=== PATIENT | female | born 1960 | race Caucasian/White ===

== ENCOUNTER 2020-07-12 10:42 | Inpatient (IN) ==
[2020-07-12] MEDS ORDERED: Cefepime HCl 2,000 MG in Water for inj. (sterile) 20 ML IVP STA (10:48)
[2020-07-12] MEDS: 0.9 % Sodium Chloride 1,000 ML IVC SCH ×3 (11:22→17:54)
[2020-07-12 11:25] LABS: Hemoglobin 12.9 g/dL (11.5-15.4); Mean Corpuscular Volume 85.2 fL (83.0-100.0); Red Cell Distribution Width 12.3 % (11.5-14.5); Segmented Neutrophils % 7.4 %
[2020-07-12 11:27] LABS: Basophils % 0.9 %; Eosinophils % 0.9 %; Hematocrit 37.5 % (35.3-44.9); Immature Platelets 9.1 % (1.1-6.1); Lymphocytes # 0.7 K/mcL (0.6-4.6); Lymphocytes % 64.2 %; Mean Corpuscular HGB Conc 34.4 g/dL (31.6-35.5); Mean Corpuscular Hemoglobin 29.3 pg (28.0-33.3); Mean Platelet Volume 10.5 fL (9.4-12.4); Monocytes # 0.3 K/mcL (0.0-1.3); Monocytes % 26.6 %; Neutrophils # 0.1 K/mcL (1.6-8.9)
[2020-07-12 11:29] LABS: Bilirubin,Urine Small (Negative); Blood,Urine Negative (Negative); Clarity,Urine Turbid (Clear); Color,Urine Light-Orange (Yellow); Glucose,Urine (UA) Normal (Normal); Granular Casts,Urine Moderate per lpf (None Seen); Hyaline Casts,Urine Moderate per lpf (None Seen); Ketones,Urine 60 mg/dL (Negative); Leukocyte Esterase,Urine Negative (Negative); Mucus,Urine Many per lpf (None-Few); Nitrite,Urine Negative (Negative); Protein,Urine 100 mg/dL (Neg-Trace); RBC,Urine 0-3 per hpf (0-3); Renal Epithelial Cells,Urine Few per hpf (None-Few); Specific Gravity,Urine 1.028 (1.010-1.025); Transitional Epi Cells,Urine Few per hpf (None-Few); Urobilinogen,Urine Normal (Normal)
[2020-07-12 11:42] LABS: BUN/Creatinine Ratio 14 (6-26); Blood Urea Nitrogen 8 mg/dL (6-20); Carbon Dioxide 20 mEq/L (23-29); Chloride 92 mEq/L (98-107); Potassium 3.5 mEq/L (3.5-5.1); Sodium 127 mEq/L (136-145)
[2020-07-12 11:43] LABS: Alanine Aminotransferase 18 Units/L (7-52); Albumin 3.7 g/dL (3.5-5.7); Albumin/Globulin Ratio 1.2 (1.1-2.2); Alkaline Phosphatase 115 Units/L (34-104); Aspartate Amino Transferase 20 Units/L (13-39); Bilirubin,Direct 0.2 mg/dL (0.0-0.2); Bilirubin,Indirect 0.9 mg/dL (0.0-1.0); Bilirubin,Total 1.1 mg/dL (0.3-1.0); Calcium 8.9 mg/dL (8.6-10.3); Globulin 3.1 g/dL (2.4-3.5); Glucose 128 mg/dL (70-105); Lipase 4 Units/L (11-82); Magnesium 1.8 mg/dL (1.6-2.6); Osmolality,Calculated 264 (280-300); Phosphorous 2.8 mg/dL (2.7-4.5); Total Protein 6.8 g/dL (6.4-8.9); eGFR For African Americans > 60 (> 60); eGFR For Non-African Americans > 60 (> 60)
[2020-07-12 11:52] LABS: Platelet Count 73 K/mcL (140-400); White Blood Count 1.1 K/mcL (4.3-11.1)
[2020-07-12 13:43] LABS: Adenovirus Not Detected (Not Detect); Bordetella Pertussis Not Detected (Not Detect); Chlamydophila pneumoniae Not Detected (Not Detect); Coronavirus 229E Not Detected (Not Detect); Coronavirus HKU1 Not Detected (Not Detect); Coronavirus NL63 Not Detected (Not Detect); Coronavirus OC43 Not Detected (Not Detect); Human Metapneumovirus Not Detected (Not Detect); Human Rhinovirus/Enterovirus Not Detected (Not Detect); Influenza A Subtype 2009 H1 Not Detected (Not Detect); Influenza B Not Detected (Not Detect); Mycoplasma pneumoniae Not Detected (Not Detect); Parainfluenza Virus 1 Not Detected (Not Detect); Parainfluenza Virus 2 Not Detected (Not Detect); Parainfluenza Virus 3 Not Detected (Not Detect); Parainfluenza Virus 4 Not Detected (Not Detect); Respiratory Syncytial Virus Not Detected (Not Detect); SARS-CoV-2 Not Detected (Not Detect)
[2020-07-12] MEDS ORDERED: Naloxone 0.4 MG/ML INJ IVP PRN (14:06)
[2020-07-12] MEDS ORDERED: Acetaminophen 325 MG TABLET PO PRN (15:18)
[2020-07-12 16:34] LABS: Adenovirus F 40/41 PCR Not detected (Not detect); Astrovirus PCR Not detected (Not detect); C.difficile Toxin A/B Gene PCR Not detected (Not detect); Campylobacter by PCR Not detected (Not detect); Cryptosporidium by PCR Not detected (Not detect); Cyclospora cayetanensis PCR Not detected (Not detect); E. coli O157 by PCR Not detected (Not detect); Entamoeba histolytica PCR Not detected (Not detect); Enteroaggregative E.coli(EAEC) Not detected (Not detect); Enteropathogenic E.coli(EPEC) Not detected (Not detect); Enterotoxigenic E.coli (ETEC) Not detected (Not detect); Giardia lamblia PCR Not detected (Not detect); Norovirus GI/GII PCR Not detected (Not detect); Plesiomonas shigelloides PCR Not detected (Not detect); Rotavirus A PCR Not detected (Not detect); Salmonella PCR Not detected (Not detect); Sapovirus PCR Not detected (Not detect); Shig/EnteroinvasiveE coli EIEC Not detected (Not detect); Shigalike tox-prod E coli STEC Not detected (Not detect); Vibrio PCR Not detected (Not detect); Vibrio cholerae PCR Not detected (Not detect); Yersinia enterocolitica PCR Not detected (Not detect)
[2020-07-12] MEDS ORDERED: Diphenoxylate/Atropine 1 TAB TABLET PO PRN (17:04)
[2020-07-12] MEDS: *HR* Heparin 5,000 UNIT/ML VIAL SQ SCH (17:54)
[2020-07-12] MEDS: MetroNIDAZOLE 500 MG/100 ML 500 MG/100 ML BAG IVPB SCH (17:55)
[2020-07-12] MEDS: Cefepime HCl 2,000 MG in 0.9 % Sodium Chloride Mini Bag 100 ML IVPB SCH (19:26)
[2020-07-12] MEDS: *HR* HYDROmorphone 2 MG TABLET PO PRN (22:22)
[2020-07-13] MEDS: MetroNIDAZOLE 500 MG/100 ML 500 MG/100 ML BAG IVPB SCH ×4 (00:23→23:54)
[2020-07-13] MEDS: *HR* LORazepam 0.5 MG TABLET PO PRN ×2 (02:05→22:46)
[2020-07-13] MEDS: Cefepime HCl 2,000 MG in 0.9 % Sodium Chloride Mini Bag 100 ML IVPB SCH ×3 (03:18→20:17)
[2020-07-13] MEDS: *HR* Heparin 5,000 UNIT/ML VIAL SQ SCH ×2 (04:49→16:52)
[2020-07-13 06:13] LABS: Basophils % 0.8 %; Eosinophils % 0.8 %; Immature Granulocytes % 0.8 % (0-4); Red Cell Distribution Width 12.7 % (11.5-14.5)
[2020-07-13 06:15] LABS: Hematocrit 26.5 % (35.3-44.9); Hemoglobin 9.1 g/dL (11.5-15.4); Immature Platelets 7.8 % (1.1-6.1); Lymphocytes # 0.8 K/mcL (0.6-4.6); Lymphocytes % 64.8 %; Mean Corpuscular HGB Conc 34.3 g/dL (31.6-35.5); Mean Corpuscular Volume 87.5 fL (83.0-100.0); Mean Platelet Volume 10.7 fL (9.4-12.4); Monocytes # 0.3 K/mcL (0.0-1.3); Monocytes % 20.5 %; Neutrophils # 0.2 K/mcL (1.6-8.9); Nucleated Red Blood Cells 2.5 /100 WBC (0); Red Blood Count 3.03 M/mcL (3.82-4.97); Segmented Neutrophils % 12.3 %; White Blood Count 1.2 K/mcL (4.3-11.1)
[2020-07-13 06:17] LABS: Platelet Count 60 K/mcL (140-400)
[2020-07-13 06:35] LABS: Platelet Estimate Decreased (Normal)
[2020-07-13 07:15] LABS: BUN/Creatinine Ratio 11 (6-26); Blood Urea Nitrogen 4 mg/dL (6-20); Calcium 7.7 mg/dL (8.6-10.3); Carbon Dioxide 17 mEq/L (23-29); Chloride 104 mEq/L (98-107); Glucose 71 mg/dL (70-105); Osmolality,Calculated 273 (280-300); Potassium 2.9 mEq/L (3.5-5.1); Sodium 134 mEq/L (136-145); eGFR For African Americans > 60 (> 60); eGFR For Non-African Americans > 60 (> 60)
[2020-07-13] MEDS: Loratadine 10 MG TABLET PO SCH (08:21)
[2020-07-13] MEDS ORDERED: Potassium Chloride 40 MEQ, Lidocaine 1% 2 ML in 0.9 % Sodium Chloride 500 ML IVPB ONE ×2 (09:16→17:00)
[2020-07-13] MEDS: 0.9 % Sodium Chloride 1,000 ML IVC SCH (10:23)
[2020-07-13] MEDS: Ringers Solution, Lactated 1,000 ML IVC SCH (11:19)
[2020-07-13] MEDS ORDERED: Diphenoxylate/Atropine 1 TAB TABLET PO SCH (12:00)
[2020-07-13 12:45] LABS: Hematocrit 28.1 % (35.3-44.9); Hemoglobin 9.6 g/dL (11.5-15.4)
[2020-07-13] MEDS: Diphenoxylate/Atropine 1 TAB TABLET PO SCH ×3 (12:57→23:56)
[2020-07-13] MEDS: *HR* HYDROmorphone 2 MG TABLET PO PRN (20:19)
[2020-07-13] MEDS ORDERED: 0.9 % Sodium Chloride Mini Bag 100 ML ONE (20:36)
[2020-07-13] MEDS ORDERED: Potassium Chloride Elixir 20 MEQ/15 ML UDC PO ONE (21:00)
[2020-07-14] MEDS: Ringers Solution, Lactated 1,000 ML IVC SCH ×2 (02:15→20:58)
[2020-07-14 03:08] LABS: Eosinophils % 0.4 %; Red Cell Distribution Width 13.2 % (11.5-14.5)
[2020-07-14 03:10] LABS: Basophils % 0.8 %; Hematocrit 25.5 % (35.3-44.9); Hemoglobin 8.7 g/dL (11.5-15.4); Immature Granulocytes % 2.4 % (0-4); Lymphocytes # 1.2 K/mcL (0.6-4.6); Lymphocytes % 46.2 %; Mean Corpuscular HGB Conc 34.1 g/dL (31.6-35.5); Mean Corpuscular Hemoglobin 29.7 pg (28.0-33.3); Monocytes # 0.4 K/mcL (0.0-1.3); Monocytes % 15.8 %; Neutrophils # 0.9 K/mcL (1.6-8.9); Red Blood Count 2.93 M/mcL (3.82-4.97); Segmented Neutrophils % 34.4 %; White Blood Count 2.5 K/mcL (4.3-11.1)
[2020-07-14 03:31] LABS: Platelet Count 82 K/mcL (140-400)
[2020-07-14 03:34] LABS: % Iron Saturation 17 % (15-50); Blood Urea Nitrogen < 2 mg/dL (6-20); Calcium 7.6 mg/dL (8.6-10.3); Carbon Dioxide 23 mEq/L (23-29); Chloride 104 mEq/L (98-107); Glucose 100 mg/dL (70-105); Iron 34 mcg/dL (50-170); Sodium 134 mEq/L (136-145); Thyroid Stimulating Hormone 3.832 mcIU/mL (0.340-5.600); Transferrin 147 mg/dL (203-362); eGFR For African Americans > 60 (> 60); eGFR For Non-African Americans > 60 (> 60)
[2020-07-14 03:54] LABS: Folate > 22.3 ng/mL (3.0-16.0); Vitamin B12 > 1500 pg/mL (250-1100)
[2020-07-14 04:13] LABS: Platelet Estimate Decreased (Normal)
[2020-07-14] MEDS: Cefepime HCl 2,000 MG in 0.9 % Sodium Chloride Mini Bag 100 ML IVPB SCH ×3 (04:45→20:37)
[2020-07-14] MEDS: *HR* Heparin 5,000 UNIT/ML VIAL SQ SCH (04:46)
[2020-07-14] MEDS: Diphenoxylate/Atropine 1 TAB TABLET PO SCH ×4 (04:47→22:45)
[2020-07-14] MEDS ORDERED: Potassium Chloride 40 MEQ, Lidocaine 1% 2 ML in 0.9 % Sodium Chloride 250 ML IVPB ONE (07:29)
[2020-07-14] MEDS ORDERED: Potassium Chloride 40 MEQ, Lidocaine 1% 2 ML in 0.9 % Sodium Chloride 500 ML IVPB ONE (07:45)
[2020-07-14] MEDS: Pantoprazole 40 MG VIAL IVP SCH ×2 (09:25→17:47)
[2020-07-14] MEDS: MetroNIDAZOLE 500 MG/100 ML 500 MG/100 ML BAG IVPB SCH ×3 (09:26→23:39)
[2020-07-14] MEDS: Loratadine 10 MG TABLET PO SCH (09:27)
[2020-07-14] MEDS: *HR* LORazepam 0.5 MG TABLET PO PRN ×2 (11:28→22:44)
[2020-07-14 14:13] LABS: Hematocrit 25.4 % (35.3-44.9); Hemoglobin 8.8 g/dL (11.5-15.4)
[2020-07-15] MEDS: Cefepime HCl 2,000 MG in 0.9 % Sodium Chloride Mini Bag 100 ML IVPB SCH ×3 (04:36→21:15)
[2020-07-15] MEDS: Diphenoxylate/Atropine 1 TAB TABLET PO SCH ×4 (04:37→23:36)
[2020-07-15 05:08] LABS: VBG Ionized Calcium 1.12 mmol/L (1.15-1.35)
[2020-07-15 05:09] LABS: Eosinophils % 0.1 %; Mean Platelet Volume 12.1 fL (9.4-12.4)
[2020-07-15 05:11] LABS: Basophils % 0.4 %; Hematocrit 27.3 % (35.3-44.9); Hemoglobin 9.2 g/dL (11.5-15.4); Immature Granulocytes % 6.1 % (0-4); Immature Platelets 14.2 % (1.1-6.1); Lymphocytes % 28.4 %; Mean Corpuscular HGB Conc 33.7 g/dL (31.6-35.5); Mean Corpuscular Hemoglobin 29.6 pg (28.0-33.3); Mean Corpuscular Volume 87.8 fL (83.0-100.0); Monocytes # 0.8 K/mcL (0.0-1.3); Monocytes % 11.1 %; Neutrophils # 3.7 K/mcL (1.6-8.9); Red Blood Count 3.11 M/mcL (3.82-4.97); Red Cell Distribution Width 13.8 % (11.5-14.5); Segmented Neutrophils % 53.9 %; White Blood Count 6.9 K/mcL (4.3-11.1)
[2020-07-15] MEDS: Pantoprazole 40 MG VIAL IVP SCH ×2 (05:14→18:09)
[2020-07-15 05:15] LABS: Platelet Count 94 K/mcL (140-400)
[2020-07-15 05:29] LABS: Alanine Aminotransferase 10 Units/L (7-52); Albumin 2.7 g/dL (3.5-5.7); Albumin/Globulin Ratio 1.4 (1.1-2.2); Alkaline Phosphatase 75 Units/L (34-104); Aspartate Amino Transferase 16 Units/L (13-39); Bilirubin,Total 0.5 mg/dL (0.3-1.0); Blood Urea Nitrogen < 2 mg/dL (6-20); Carbon Dioxide 27 mEq/L (23-29); Chloride 99 mEq/L (98-107); Globulin 1.9 g/dL (2.4-3.5); Glucose 65 mg/dL (70-105); Magnesium 1.5 mg/dL (1.6-2.6); Potassium 2.9 mEq/L (3.5-5.1); Sodium 135 mEq/L (136-145); Total Protein 4.6 g/dL (6.4-8.9); eGFR For African Americans > 60 (> 60); eGFR For Non-African Americans > 60 (> 60)
[2020-07-15 05:43] LABS: Anisocytosis 1+ (Not Present); Platelet Estimate Slight Decrease (Normal)
[2020-07-15] MEDS: MetroNIDAZOLE 500 MG/100 ML 500 MG/100 ML BAG IVPB SCH (08:08)
[2020-07-15] MEDS: Loratadine 10 MG TABLET PO SCH (08:09)
[2020-07-15] MEDS ORDERED: Calcium Gluconate 1gm/50mL 1 GM/50 ML BAG IVPB ONE (10:16)
[2020-07-15] MEDS ORDERED: *HR* HYDROmorphone 2 MG TABLET PO PRN (10:17)
[2020-07-15] MEDS: *HR* LORazepam 0.5 MG TABLET PO PRN ×2 (11:53→23:35)
[2020-07-15] MEDS: Ondansetron 4 MG/2 ML VIAL IVP PRN ×2 (14:04→23:36)
[2020-07-15] MEDS: metroNIDAZOLE 500 MG TABLET PO SCH ×2 (15:03→21:14)
[2020-07-15] MEDS: dexAMETHasone 4 MG TABLET PO SCH (18:09)
[2020-07-16 01:37] LABS: Hemoglobin 10.2 g/dL (11.5-15.4); Nucleated Red Blood Cells 0.3 /100 WBC (0)
[2020-07-16 01:39] LABS: Hematocrit 30.1 % (35.3-44.9); Immature Platelets 17.6 % (1.1-6.1); Lymphocytes # 2.4 K/mcL (0.6-4.6); Mean Corpuscular HGB Conc 33.9 g/dL (31.6-35.5); Mean Corpuscular Hemoglobin 30.4 pg (28.0-33.3); Mean Corpuscular Volume 89.6 fL (83.0-100.0); Mean Platelet Volume 11.5 fL (9.4-12.4); Red Blood Count 3.36 M/mcL (3.82-4.97); Red Cell Distribution Width 14.2 % (11.5-14.5)
[2020-07-16 01:42] LABS: Platelet Count 98 K/mcL (140-400)
[2020-07-16 02:02] LABS: Alanine Aminotransferase 11 Units/L (7-52); Albumin 2.7 g/dL (3.5-5.7); Albumin/Globulin Ratio 1.2 (1.1-2.2); Alkaline Phosphatase 85 Units/L (34-104); Aspartate Amino Transferase 22 Units/L (13-39); BUN/Creatinine Ratio 5 (6-26); Bilirubin,Total 0.6 mg/dL (0.3-1.0); Blood Urea Nitrogen 2 mg/dL (6-20); Calcium 7.8 mg/dL (8.6-10.3); Carbon Dioxide 28 mEq/L (23-29); Chloride 100 mEq/L (98-107); Globulin 2.2 g/dL (2.4-3.5); Glucose 90 mg/dL (70-105); Magnesium 1.8 mg/dL (1.6-2.6); Osmolality,Calculated 280 (280-300); Sodium 137 mEq/L (136-145); Total Protein 4.9 g/dL (6.4-8.9); eGFR For African Americans > 60 (> 60); eGFR For Non-African Americans > 60 (> 60)
[2020-07-16 02:23] LABS: Band Neutrophils % 19.1 % (0-4); Eosinophils # 0.6 K/mcL (0.0-0.6); Eosinophils % 4.3 %; Metamyelocytes % 2.1 % (0); Monocytes # 0.6 K/mcL (0.0-1.3); Monocytes % 4.3 %; Neutrophils # 10.1 K/mcL (1.6-8.9); Segmented Neutrophils % 53.2 %
[2020-07-16 02:25] LABS: Anisocytosis 1+ (Not Present); Platelet Estimate Slight Decrease (Normal); Toxic Granulation Present (Not Present)
[2020-07-16] MEDS: Cefepime HCl 2,000 MG in 0.9 % Sodium Chloride Mini Bag 100 ML IVPB SCH ×2 (05:04→14:14)
[2020-07-16] MEDS: Diphenoxylate/Atropine 1 TAB TABLET PO SCH ×4 (05:04→23:14)
[2020-07-16] MEDS: Pantoprazole 40 MG VIAL IVP SCH (07:54)
[2020-07-16] MEDS: Loratadine 10 MG TABLET PO SCH (07:55)
[2020-07-16] MEDS: dexAMETHasone 4 MG TABLET PO SCH (07:55)
[2020-07-16] MEDS: metroNIDAZOLE 500 MG TABLET PO SCH ×3 (07:55→19:55)
[2020-07-16] MEDS ORDERED: Potassium Chloride 40 MEQ, Lidocaine 1% 2 ML in D5% in Water 500 ML IVPB ONE (09:20)
[2020-07-16] MEDS: *HR* LORazepam 0.5 MG TABLET PO PRN ×2 (11:10→23:14)
[2020-07-16] MEDS: Ringers Solution, Lactated 1,000 ML IVC SCH ×2 (11:11→19:55)
[2020-07-16] MEDS: Cefepime HCl 2,000 MG in Water for inj. (sterile) 20 ML IVP SCH ×2 (14:45→23:13)
[2020-07-16] MEDS: Ondansetron 4 MG/2 ML VIAL IVP PRN (21:48)
[2020-07-17 04:01] LABS: Eosinophils % 0.1 %; Hemoglobin 9.5 g/dL (11.5-15.4)
[2020-07-17 04:03] LABS: Basophils % 0.2 %; Hematocrit 29.1 % (35.3-44.9); Immature Granulocytes % 6.9 % (0-4); Immature Platelets 14.5 % (1.1-6.1); Lymphocytes % 13.6 %; Mean Corpuscular HGB Conc 32.6 g/dL (31.6-35.5); Mean Corpuscular Hemoglobin 29.4 pg (28.0-33.3); Mean Corpuscular Volume 90.1 fL (83.0-100.0); Mean Platelet Volume 11.3 fL (9.4-12.4); Monocytes # 1.7 K/mcL (0.0-1.3); Monocytes % 7.9 %; Neutrophils # 15.5 K/mcL (1.6-8.9); Nucleated Red Blood Cells 0.2 /100 WBC (0); Platelet Count 132 K/mcL (140-400); Red Blood Count 3.23 M/mcL (3.82-4.97); Red Cell Distribution Width 14.7 % (11.5-14.5); Segmented Neutrophils % 71.3 %; White Blood Count 21.7 K/mcL (4.3-11.1)
[2020-07-17 04:20] LABS: Alanine Aminotransferase 16 Units/L (7-52); Albumin 2.6 g/dL (3.5-5.7); Albumin/Globulin Ratio 1.4 (1.1-2.2); Alkaline Phosphatase 106 Units/L (34-104); Aspartate Amino Transferase 40 Units/L (13-39); BUN/Creatinine Ratio 5 (6-26); Bilirubin,Total 0.4 mg/dL (0.3-1.0); Blood Urea Nitrogen 2 mg/dL (6-20); Calcium 7.8 mg/dL (8.6-10.3); Carbon Dioxide 31 mEq/L (23-29); Chloride 102 mEq/L (98-107); Globulin 1.9 g/dL (2.4-3.5); Glucose 78 mg/dL (70-105); Magnesium 1.5 mg/dL (1.6-2.6); Osmolality,Calculated 283 (280-300); Potassium 3.5 mEq/L (3.5-5.1); Sodium 139 mEq/L (136-145); Total Protein 4.5 g/dL (6.4-8.9); eGFR For African Americans > 60 (> 60); eGFR For Non-African Americans > 60 (> 60)
[2020-07-17 04:25] LABS: Platelet Estimate Normal (Normal)
[2020-07-17] MEDS: Diphenoxylate/Atropine 1 TAB TABLET PO SCH ×4 (05:30→23:17)
[2020-07-17] MEDS: Ringers Solution, Lactated 1,000 ML IVC SCH ×2 (08:23→15:18)
[2020-07-17] MEDS: Cefepime HCl 2,000 MG in Water for inj. (sterile) 20 ML IVP SCH ×3 (08:23→23:17)
[2020-07-17] MEDS: Ondansetron 4 MG/2 ML VIAL IVP PRN ×2 (08:24→16:22)
[2020-07-17] MEDS: metroNIDAZOLE 500 MG TABLET PO SCH ×3 (08:24→19:52)
[2020-07-17] MEDS: Loratadine 10 MG TABLET PO SCH (08:24)
[2020-07-17] MEDS ORDERED: GRANISETRON TP SCH (09:00)
[2020-07-17] MEDS: *HR* LORazepam 0.5 MG TABLET PO PRN ×2 (10:43→23:17)
[2020-07-17] MEDS: Nystatin Cream 15 GM TUBE TP SCH ×2 (11:55→19:53)
[2020-07-18] MEDS: Ringers Solution, Lactated 1,000 ML IVC SCH (04:29)
[2020-07-18] MEDS: Diphenoxylate/Atropine 1 TAB TABLET PO SCH ×2 (05:51→11:16)
[2020-07-18 07:57] VITALS: BP 103/69
[2020-07-18] MEDS: Loratadine 10 MG TABLET PO SCH (08:02)
[2020-07-18] MEDS: metroNIDAZOLE 500 MG TABLET PO SCH (08:02)
[2020-07-18] MEDS: Cefepime HCl 2,000 MG in Water for inj. (sterile) 20 ML IVP SCH (08:03)
[2020-07-18 08:28] LABS: Alanine Aminotransferase 23 Units/L (7-52); Albumin 2.6 g/dL (3.5-5.7); Albumin/Globulin Ratio 1.3 (1.1-2.2); Alkaline Phosphatase 114 Units/L (34-104); Aspartate Amino Transferase 59 Units/L (13-39); BUN/Creatinine Ratio 7 (6-26); Bilirubin,Total 0.4 mg/dL (0.3-1.0); Blood Urea Nitrogen 3 mg/dL (6-20); Calcium 7.8 mg/dL (8.6-10.3); Carbon Dioxide 30 mEq/L (23-29); Chloride 101 mEq/L (98-107); Glucose 72 mg/dL (70-105); Magnesium 1.9 mg/dL (1.6-2.6); Osmolality,Calculated 281 (280-300); Potassium 3.4 mEq/L (3.5-5.1); Sodium 138 mEq/L (136-145); Total Protein 4.6 g/dL (6.4-8.9); eGFR For African Americans > 60 (> 60); eGFR For Non-African Americans > 60 (> 60)
[2020-07-18 08:43] LABS: Mean Corpuscular Volume 91.1 fL (83.0-100.0)
[2020-07-18 08:45] LABS: Hematocrit 29.8 % (35.3-44.9); Hemoglobin 9.6 g/dL (11.5-15.4); Mean Corpuscular HGB Conc 32.2 g/dL (31.6-35.5); Mean Corpuscular Hemoglobin 29.4 pg (28.0-33.3); Nucleated Red Blood Cells 0.3 /100 WBC (0); Red Blood Count 3.27 M/mcL (3.82-4.97)
[2020-07-18] MEDS: Nystatin Cream 15 GM TUBE TP SCH (09:07)
[2020-07-18] MEDS: *HR* LORazepam 0.5 MG TABLET PO PRN (10:29)
[2020-07-18] MEDS ORDERED: Nystatin SUSP 5 ML UD.LIQ PO SCH (13:00)
[2020-07-18 13:46] LABS: Mean Platelet Volume 9.7 fL (9.4-12.4)
[2020-07-18 14:02] LABS: Platelet Clumps Few (Not Present)
[2020-07-18 14:03] LABS: Toxic Granulation Present (Not Present)
[2020-07-18 14:08] LABS: Lymphocytes # 2.7 K/mcL (0.6-4.6); Monocytes # 1.4 K/mcL (0.0-1.3); Neutrophils # 12.2 K/mcL (1.6-8.9)
== END 2020-07-18 14:42 | disposition home or self-care (01) | DRG 871 ==
LOC: EMEROOARM 10:42 → 2ANU 10:42 → SUATTDRO 15:09 → 2ANU 15:46 → SUATTDRO 16:00
PROVIDERS: ADMIT Internal Medicine; ATTEND Internal Medicine

== ENCOUNTER 2020-10-17 19:55 | Inpatient (IN) ==
[2020-10-17] MEDS ORDERED: 0.9 % Sodium Chloride 1,000 ML IVC ONE ×3 (20:18→22:55)
[2020-10-17 20:53] LABS: Basophils # 0.1 K/mcL (0.0-0.2); Basophils % 0.3 %; Hematocrit 34.3 % (35.3-44.9); Hemoglobin 11.4 g/dL (11.5-15.4); Immature Granulocytes % 0.9 % (0-4); Lymphocytes # 1.4 K/mcL (0.6-4.6); Lymphocytes % 6.9 %; Mean Corpuscular HGB Conc 33.2 g/dL (31.6-35.5); Mean Corpuscular Hemoglobin 33.8 pg (28.0-33.3); Mean Corpuscular Volume 101.8 fL (83.0-100.0); Mean Platelet Volume 10.3 fL (9.4-12.4); Monocytes # 0.1 K/mcL (0.0-1.3); Monocytes % 0.6 %; Neutrophils # 18.3 K/mcL (1.6-8.9); Platelet Count 161 K/mcL (140-400); Red Blood Count 3.37 M/mcL (3.82-4.97); Red Cell Distribution Width 14.6 % (11.5-14.5); Segmented Neutrophils % 91.3 %; White Blood Count 20.1 K/mcL (4.3-11.1)
[2020-10-17 21:02] LABS: INR 1.4; Prothrombin Time 15.5 Seconds (9.4-12.1)
[2020-10-17 21:11] LABS: Bilirubin,Urine Negative (Negative); Blood,Urine Small (Negative); Clarity,Urine Clear (Clear); Color,Urine Light-Orange (Yellow); Glucose,Urine (UA) Normal (Normal); Ketones,Urine Trace mg/dL (Negative); Leukocyte Esterase,Urine Negative (Negative); Mucus,Urine Few per lpf (None-Few); Nitrite,Urine Negative (Negative); PH,Urine 5.5 pH Units (5.0-8.0); Protein,Urine 30 mg/dL (Neg-Trace); RBC,Urine 0-3 per hpf (0-3); Specific Gravity,Urine 1.015 (1.010-1.025); Squamous Epithelial Cell,Urine Few per hpf (None-Few); Urobilinogen,Urine Normal (Normal)
[2020-10-17 21:14] LABS: Alanine Aminotransferase 26 Units/L (7-52); Albumin/Globulin Ratio 1.2 (1.1-2.2); Alkaline Phosphatase 173 Units/L (34-104); Aspartate Amino Transferase 42 Units/L (13-39); BUN/Creatinine Ratio 15 (6-26); Bilirubin,Direct 0.4 mg/dL (0.0-0.2); Bilirubin,Indirect 1.6 mg/dL (0.0-1.0); Blood Urea Nitrogen 8 mg/dL (6-20); Calcium 8.8 mg/dL (8.6-10.3); Carbon Dioxide 23 mEq/L (23-29); Chloride 94 mEq/L (98-107); Globulin 3.4 g/dL (2.4-3.5); Glucose 160 mg/dL (70-105); Osmolality,Calculated 270 (280-300); Potassium 3.6 mEq/L (3.5-5.1); Sodium 129 mEq/L (136-145); Total Protein 7.4 g/dL (6.4-8.9); Troponin I < 0.03 ng/mL (< 0.04); eGFR For African Americans > 60 (> 60); eGFR For Non-African Americans > 60 (> 60)
[2020-10-17] MEDS ORDERED: Isovue-370 500 ML BOTTLE IVP ONE (21:26)
[2020-10-17] MEDS ORDERED: Ondansetron 4 MG/2 ML VIAL IVP ONE (21:43)
[2020-10-18] MEDS ORDERED: Melatonin 3 MG TABLET PO PRN (00:38)
[2020-10-18] MEDS ORDERED: Naloxone 0.4 MG/ML INJ IVP PRN (00:38)
[2020-10-18] MEDS ORDERED: Ondansetron 4 MG/2 ML VIAL IVP PRN (00:38)
[2020-10-18] MEDS ORDERED: 0.9 % Sodium Chloride 1,000 ML IVC ONE (00:44)
[2020-10-18] MEDS ORDERED: Acetaminophen 325 MG TABLET PO PRN (00:44)
[2020-10-18 01:33] LABS: Basophils % 0.3 %; Eosinophils % 0.3 %; Hematocrit 28.4 % (35.3-44.9); Immature Granulocytes % 0.8 % (0-4); Lymphocytes # 1.3 K/mcL (0.6-4.6); Lymphocytes % 10.5 %; Mean Corpuscular HGB Conc 33.5 g/dL (31.6-35.5); Mean Corpuscular Hemoglobin 34.8 pg (28.0-33.3); Mean Platelet Volume 10.2 fL (9.4-12.4); Monocytes # 0.1 K/mcL (0.0-1.3); Neutrophils # 10.7 K/mcL (1.6-8.9); Platelet Count 102 K/mcL (140-400); Red Blood Count 2.73 M/mcL (3.82-4.97); Red Cell Distribution Width 14.5 % (11.5-14.5); Segmented Neutrophils % 87.1 %; White Blood Count 12.2 K/mcL (4.3-11.1)
[2020-10-18 01:34] LABS: Hemoglobin 9.5 g/dL (11.5-15.4)
[2020-10-18 01:41] LABS: INR 1.4; Prothrombin Time 16.5 Seconds (9.4-12.1)
[2020-10-18 01:53] LABS: Alanine Aminotransferase 20 Units/L (7-52); Albumin 3.1 g/dL (3.5-5.7); Albumin/Globulin Ratio 1.2 (1.1-2.2); Alkaline Phosphatase 127 Units/L (34-104); Aspartate Amino Transferase 33 Units/L (13-39); BUN/Creatinine Ratio 21 (6-26); Bilirubin,Total 1.3 mg/dL (0.3-1.0); Blood Urea Nitrogen 7 mg/dL (6-20); Calcium 7.8 mg/dL (8.6-10.3); Carbon Dioxide 22 mEq/L (23-29); Chloride 107 mEq/L (98-107); Globulin 2.5 g/dL (2.4-3.5); Glucose 102 mg/dL (70-105); Magnesium 2.2 mg/dL (1.6-2.6); Osmolality,Calculated 280 (280-300); Phosphorous 2.8 mg/dL (2.7-4.5); Potassium 3.4 mEq/L (3.5-5.1); Sodium 136 mEq/L (136-145); Total Protein 5.6 g/dL (6.4-8.9); eGFR For African Americans > 60 (> 60); eGFR For Non-African Americans > 60 (> 60)
[2020-10-18] MEDS ORDERED: Ketorolac 15 MG/ML VIAL IVP PRN (03:40)
[2020-10-18] MEDS ORDERED: polyethylene glycoL 3350 17 GM POWD.PACK PO PRN (03:54)
[2020-10-18] MEDS: *HR* Heparin 5,000 UNIT/ML VIAL SQ SCH ×2 (04:42→16:51)
[2020-10-18] MEDS: *HR* LORazepam 0.5 MG TABLET PO PRN ×2 (04:43→16:51)
[2020-10-18] MEDS ORDERED: Cefepime HCl 2,000 MG in Water for inj. (sterile) 20 ML IVP SCH (06:00)
[2020-10-18] MEDS ORDERED: Isovue-370 500 ML BOTTLE IVP ONE (07:45)
[2020-10-18] MEDS: Ringers Solution, Lactated 1,000 ML IVC SCH ×2 (08:58→21:52)
[2020-10-18] MEDS ORDERED: Ipratropium/Albuterol Neb 3 ML IH PRN (10:39)
[2020-10-18] MEDS: Cefepime HCl 2,000 MG in Water for inj. (sterile) 20 ML IVP SCH ×2 (12:29→20:37)
[2020-10-18 17:14] LABS: RBC,Pleural Fluid 27000 RBC/mcL
[2020-10-18 17:18] LABS: Total Protein,Pleural Fluid 3.6 g/dL
[2020-10-18 18:09] LABS: Appearance of Pleural Fl Cloudy (Clear)
[2020-10-18] MEDS ORDERED: Cefepime HCl 2,000 MG in Water for inj. (sterile) 20 ML IVP ONE (21:24)
[2020-10-18] MEDS: *HR* OxyCODONE Immed Rel 5 MG TABLET PO SCH (22:06)
[2020-10-18] MEDS ORDERED: *HR* OxyCODONE Immed Rel 5 MG TABLET PO ONE (23:27)
[2020-10-19] MEDS: Acetaminophen/Butalbital/CaffeineTABLET PO PRN (05:02)
[2020-10-19] MEDS: Cefepime HCl 2,000 MG in Water for inj. (sterile) 20 ML IVP SCH ×3 (05:03→21:06)
[2020-10-19] MEDS: *HR* LORazepam 0.5 MG TABLET PO SCH ×2 (05:03→17:20)
[2020-10-19] MEDS: *HR* Heparin 5,000 UNIT/ML VIAL SQ SCH ×2 (05:03→17:20)
[2020-10-19] MEDS ORDERED: Azithromycin 500 MG in 0.9 % Sodium Chloride 250 ML IVPB SCH (10:00)
[2020-10-19] MEDS ORDERED: *HR* HYDROmorphone 2 MG/ML SYRINGE IVP PRN (14:35)
[2020-10-19] MEDS: *HR* HYDROmorphone (PF) 1 MG/ML SYRINGE IVP PRN (21:05)
[2020-10-19] MEDS: *HR* OxyCODONE Immed Rel 5 MG TABLET PO SCH (21:06)
[2020-10-20] MEDS: *HR* Heparin 5,000 UNIT/ML VIAL SQ SCH ×2 (05:05→17:33)
[2020-10-20] MEDS: Cefepime HCl 2,000 MG in Water for inj. (sterile) 20 ML IVP SCH ×3 (05:05→20:07)
[2020-10-20] MEDS: *HR* LORazepam 0.5 MG TABLET PO SCH ×2 (05:05→17:32)
[2020-10-20 08:23] LABS: Hematocrit 28.9 % (35.3-44.9); Hemoglobin 9.5 g/dL (11.5-15.4); Mean Corpuscular HGB Conc 32.9 g/dL (31.6-35.5); Mean Corpuscular Hemoglobin 34.1 pg (28.0-33.3); Mean Corpuscular Volume 103.6 fL (83.0-100.0); Mean Platelet Volume 9.6 fL (9.4-12.4); Platelet Count 115 K/mcL (140-400); Red Blood Count 2.79 M/mcL (3.82-4.97); Red Cell Distribution Width 14.3 % (11.5-14.5)
[2020-10-20 08:24] LABS: White Blood Count 5.1 K/mcL (4.3-11.1)
[2020-10-20 08:43] LABS: BUN/Creatinine Ratio 14 (6-26); Blood Urea Nitrogen 6 mg/dL (6-20); Calcium 8.7 mg/dL (8.6-10.3); Carbon Dioxide 25 mEq/L (23-29); Chloride 103 mEq/L (98-107); Glucose 99 mg/dL (70-105); Osmolality,Calculated 278 (280-300); Phosphorous 3.2 mg/dL (2.7-4.5); Potassium 4.3 mEq/L (3.5-5.1); Sodium 135 mEq/L (136-145); eGFR For African Americans > 60 (> 60); eGFR For Non-African Americans > 60 (> 60)
[2020-10-20] MEDS ORDERED: *HR* FentaNYL PATCH 12 MCG PATCH TD SCH (09:15)
[2020-10-20] MEDS: Azithromycin 250 MG TABLET PO SCH (10:12)
[2020-10-20] MEDS: *HR* HYDROmorphone (PF) 1 MG/ML SYRINGE IVP PRN (20:07)
[2020-10-21 00:57] LABS: Fluid Source for Albumin L PLEURAL FL.
[2020-10-21 02:03] LABS: Basophils % 0.3 %; Eosinophils # 0.1 K/mcL (0.0-0.6); Eosinophils % 1.7 %; Hematocrit 28.4 % (35.3-44.9); Hemoglobin 9.3 g/dL (11.5-15.4); Immature Granulocytes % 0.3 % (0-4); Lymphocytes # 1.9 K/mcL (0.6-4.6); Mean Corpuscular HGB Conc 32.7 g/dL (31.6-35.5); Mean Corpuscular Hemoglobin 34.1 pg (28.0-33.3); Mean Platelet Volume 9.7 fL (9.4-12.4); Monocytes # 0.5 K/mcL (0.0-1.3); Monocytes % 6.8 %; Neutrophils # 4.7 K/mcL (1.6-8.9); Platelet Count 104 K/mcL (140-400); Red Blood Count 2.73 M/mcL (3.82-4.97); Red Cell Distribution Width 14.2 % (11.5-14.5); Segmented Neutrophils % 64.9 %; White Blood Count 7.2 K/mcL (4.3-11.1)
[2020-10-21 02:19] LABS: Alanine Aminotransferase 27 Units/L (7-52); Albumin 3.3 g/dL (3.5-5.7); Albumin/Globulin Ratio 1.2 (1.1-2.2); Alkaline Phosphatase 260 Units/L (34-104); Aspartate Amino Transferase 40 Units/L (13-39); BUN/Creatinine Ratio 13 (6-26); Bilirubin,Total 0.6 mg/dL (0.3-1.0); Blood Urea Nitrogen 5 mg/dL (6-20); Calcium 8.6 mg/dL (8.6-10.3); Carbon Dioxide 24 mEq/L (23-29); Chloride 100 mEq/L (98-107); Globulin 2.8 g/dL (2.4-3.5); Glucose 113 mg/dL (70-105); Magnesium 1.9 mg/dL (1.6-2.6); Osmolality,Calculated 274 (280-300); Phosphorous 3.6 mg/dL (2.7-4.5); Potassium 3.9 mEq/L (3.5-5.1); Sodium 133 mEq/L (136-145); Total Protein 6.1 g/dL (6.4-8.9); eGFR For African Americans > 60 (> 60); eGFR For Non-African Americans > 60 (> 60)
[2020-10-21] MEDS: Cefepime HCl 2,000 MG in Water for inj. (sterile) 20 ML IVP SCH ×2 (05:11→11:55)
[2020-10-21] MEDS: *HR* Heparin 5,000 UNIT/ML VIAL SQ SCH (05:12)
[2020-10-21] MEDS: *HR* LORazepam 0.5 MG TABLET PO SCH (05:12)
[2020-10-21] MEDS: Acetaminophen/Butalbital/CaffeineTABLET PO PRN (05:20)
[2020-10-21] MEDS: Azithromycin 250 MG TABLET PO SCH (08:11)
[2020-10-21 13:54] LABS: Adenovirus Not Detected (Not Detect); Coronavirus 229E Not Detected (Not Detect); Coronavirus HKU1 Not Detected (Not Detect); Coronavirus NL63 Not Detected (Not Detect); Coronavirus OC43 Not Detected (Not Detect); Human Metapneumovirus Not Detected (Not Detect); Human Rhinovirus/Enterovirus Not Detected (Not Detect); Influenza A Subtype 2009 H1 Not Detected (Not Detect); Influenza B Not Detected (Not Detect); Parainfluenza Virus 1 Not Detected (Not Detect); Parainfluenza Virus 2 Not Detected (Not Detect); Parainfluenza Virus 3 Not Detected (Not Detect); Parainfluenza Virus 4 Not Detected (Not Detect); SARS-CoV-2 Not Detected (Not Detect)
[2020-10-21 13:55] LABS: Bordetella Pertussis Not Detected (Not Detect); Chlamydophila pneumoniae Not Detected (Not Detect); Mycoplasma pneumoniae Not Detected (Not Detect); Respiratory Syncytial Virus Not Detected (Not Detect)
[2020-10-21] MEDS ORDERED: BuPROPion XL (24 HR) 150 MG TABLET PO SCH (14:00)
[2020-10-21 15:41] VITALS: BP 102/65
[2020-10-23] MEDS ORDERED: GRANISETRON TP SCH (15:39)
== END 2020-10-21 17:17 | disposition home or self-care (01) | DRG 871 ==
LOC: EMEROOARM 19:55 → 3NENU 19:55 → 2NENU 10-18 00:05 → 2ANU 10-18 00:29 → SUATTDRO 10-18 15:41
PROVIDERS: ADMIT Family Medicine; ATTEND Internal Medicine

== ENCOUNTER 2020-10-31 12:27 | Observation (INO) ==
[2020-10-31] MEDS ORDERED: Ondansetron 4 MG/2 ML VIAL IVP ONE (12:57)
[2020-10-31] MEDS ORDERED: Isovue-370 500 ML BOTTLE IVP ONE (12:57)
[2020-10-31] MEDS ORDERED: Morphine Sulfate 2 MG/ML SYRINGE IVP ONE (12:57)
[2020-10-31 13:23] LABS: Basophils # 0.1 K/mcL (0.0-0.2); Basophils % 0.5 %; Eosinophils # 0.2 K/mcL (0.0-0.6); Eosinophils % 1.2 %; Hemoglobin 12.1 g/dL (11.5-15.4); Immature Granulocytes % 0.4 % (0-4); Lymphocytes # 1.9 K/mcL (0.6-4.6); Lymphocytes % 13.8 %; Mean Corpuscular HGB Conc 32.7 g/dL (31.6-35.5); Mean Corpuscular Hemoglobin 33.6 pg (28.0-33.3); Mean Corpuscular Volume 102.8 fL (83.0-100.0); Mean Platelet Volume 9.3 fL (9.4-12.4); Monocytes # 1.4 K/mcL (0.0-1.3); Neutrophils # 10.3 K/mcL (1.6-8.9); Platelet Count 363 K/mcL (140-400); Red Cell Distribution Width 13.5 % (11.5-14.5); Segmented Neutrophils % 74.1 %
[2020-10-31 13:31] LABS: INR 1.3
[2020-10-31 13:33] LABS: Activated Partial Thrombo Time 30.6 Seconds (26.0-36.0)
[2020-10-31 13:48] LABS: Alanine Aminotransferase 18 Units/L (7-52); Albumin 4.1 g/dL (3.5-5.7); Albumin/Globulin Ratio 1.2 (1.1-2.2); Alkaline Phosphatase 262 Units/L (34-104); Aspartate Amino Transferase 33 Units/L (13-39); BUN/Creatinine Ratio 10 (6-26); Bilirubin,Total 0.7 mg/dL (0.3-1.0); Blood Urea Nitrogen 5 mg/dL (6-20); Calcium 9.5 mg/dL (8.6-10.3); Carbon Dioxide 26 mEq/L (23-29); Chloride 96 mEq/L (98-107); Globulin 3.3 g/dL (2.4-3.5); Glucose 114 mg/dL (70-105); Lipase 6 Units/L (11-82); Magnesium 1.9 mg/dL (1.6-2.6); Osmolality,Calculated 274 (280-300); Phosphorous 4.4 mg/dL (2.7-4.5); Potassium 3.8 mEq/L (3.5-5.1); Sodium 133 mEq/L (136-145); Total Protein 7.4 g/dL (6.4-8.9); Troponin I < 0.03 ng/mL (< 0.04); eGFR For African Americans > 60 (> 60); eGFR For Non-African Americans > 60 (> 60)
[2020-10-31] MEDS ORDERED: levoFLOXacin 750 MG/150 ML 750 MG/150 ML BAG IVPB SCH (14:30)
[2020-10-31 14:33] LABS: Adenovirus Not Detected (Not Detect); Bordetella Pertussis Not Detected (Not Detect); Chlamydophila pneumoniae Not Detected (Not Detect); Coronavirus 229E Not Detected (Not Detect); Coronavirus HKU1 Not Detected (Not Detect); Coronavirus NL63 Not Detected (Not Detect); Coronavirus OC43 Not Detected (Not Detect); Human Metapneumovirus Not Detected (Not Detect); Human Rhinovirus/Enterovirus Not Detected (Not Detect); Influenza A Subtype 2009 H1 Not Detected (Not Detect); Influenza B Not Detected (Not Detect); Mycoplasma pneumoniae Not Detected (Not Detect); Parainfluenza Virus 1 Not Detected (Not Detect); Parainfluenza Virus 2 Not Detected (Not Detect); Parainfluenza Virus 3 Not Detected (Not Detect); Parainfluenza Virus 4 Not Detected (Not Detect); Respiratory Syncytial Virus Not Detected (Not Detect); SARS-CoV-2 Not Detected (Not Detect)
[2020-10-31] MEDS ORDERED: 0.9 % Sodium Chloride 1,000 ML IVC ONE (14:43)
[2020-10-31] MEDS ORDERED: Naloxone 0.4 MG/ML INJ IVP PRN (15:32)
[2020-10-31] MEDS ORDERED: Melatonin 3 MG TABLET PO PRN (15:32)
[2020-10-31] MEDS ORDERED: Ondansetron 4 MG/2 ML VIAL IVP PRN (15:32)
[2020-10-31] MEDS ORDERED: Saline Nasal Spray 44 ML BOTTLE NS PRN (15:36)
[2020-10-31] MEDS ORDERED: traZODone 50 MG TABLET PO PRN (15:36)
[2020-10-31] MEDS ORDERED: Benzonatate 100 MG CAPSULE PO PRN (15:36)
[2020-10-31] MEDS ORDERED: Saliva Stimulant 44.3ml BOTTLE PO PRN (15:36)
[2020-10-31] MEDS ORDERED: Ipratropium/Albuterol Neb 3 ML IH PRN (15:39)
[2020-10-31] MEDS ORDERED: Ringers Solution, Lactated 1,000 ML IVC SCH (15:45)
[2020-10-31] MEDS ORDERED: Sennosides/Docusate Sodium TABLET PO PRN (16:56)
[2020-10-31] MEDS ORDERED: *HR* LORazepam 0.5 MG TABLET PO PRN (16:56)
[2020-10-31] MEDS ORDERED: Acetaminophen/Butalbital/CaffeineTABLET PO PRN (16:56)
[2020-10-31 17:02] LABS: INR 1.3; Prothrombin Time 15.4 Seconds (9.4-12.1)
[2020-10-31] MEDS: Ipratropium/Albuterol Neb 3 ML IH SCH ×2 (17:02→22:09)
[2020-10-31] MEDS: Morphine Sulfate 2 MG/ML SYRINGE IVP PRN (17:38)
[2020-10-31 20:18] LABS: Bilirubin,Urine Negative (Negative); Blood,Urine Negative (Negative); Clarity,Urine Clear (Clear); Color,Urine Light-Yellow (Yellow); Glucose,Urine (UA) Normal (Normal); Ketones,Urine Trace mg/dL (Negative); Leukocyte Esterase,Urine Negative (Negative); Nitrite,Urine Negative (Negative); Protein,Urine Trace mg/dL (Neg-Trace); Specific Gravity,Urine > 1.030 (1.010-1.025); Urobilinogen,Urine Normal (Normal)
[2020-10-31] MEDS ORDERED: Artificial Tears SOLN 15 ML BOTTLE BOTH EYES SCH (21:00)
[2020-10-31] MEDS: Chlorhexidine Rinse 15 ML MOUTHWASH MM SCH (21:48)
[2020-10-31] MEDS: Lactobacillus 1 EACH CAP.SPRINK PO SCH (21:49)
[2020-11-01] MEDS: Morphine Sulfate 2 MG/ML SYRINGE IVP PRN ×2 (00:09→04:14)
[2020-11-01] MEDS: Ipratropium/Albuterol Neb 3 ML IH SCH ×3 (03:22→16:00)
[2020-11-01 04:35] LABS: Basophils # 0.1 K/mcL (0.0-0.2); Basophils % 0.4 %; Eosinophils # 0.2 K/mcL (0.0-0.6); Eosinophils % 1.4 %; Hematocrit 31.1 % (35.3-44.9); Immature Granulocytes % 0.5 % (0-4); Lymphocytes # 2.2 K/mcL (0.6-4.6); Mean Corpuscular HGB Conc 32.2 g/dL (31.6-35.5); Mean Corpuscular Hemoglobin 32.8 pg (28.0-33.3); Mean Platelet Volume 9.2 fL (9.4-12.4); Monocytes # 1.4 K/mcL (0.0-1.3); Monocytes % 11.6 %; Neutrophils # 8.3 K/mcL (1.6-8.9); Platelet Count 269 K/mcL (140-400); Red Blood Count 3.05 M/mcL (3.82-4.97); Red Cell Distribution Width 13.4 % (11.5-14.5); Segmented Neutrophils % 68.1 %; White Blood Count 12.2 K/mcL (4.3-11.1)
[2020-11-01 04:53] LABS: Alanine Aminotransferase 13 Units/L (7-52); Albumin 3.5 g/dL (3.5-5.7); Albumin/Globulin Ratio 1.3 (1.1-2.2); Alkaline Phosphatase 207 Units/L (34-104); Aspartate Amino Transferase 24 Units/L (13-39); BUN/Creatinine Ratio 7 (6-26); Bilirubin,Total 0.6 mg/dL (0.3-1.0); Blood Urea Nitrogen 3 mg/dL (6-20); Carbon Dioxide 24 mEq/L (23-29); Chloride 99 mEq/L (98-107); Globulin 2.8 g/dL (2.4-3.5); Glucose 120 mg/dL (70-105); Magnesium 1.7 mg/dL (1.6-2.6); Osmolality,Calculated 274 (280-300); Phosphorous 4.2 mg/dL (2.7-4.5); Potassium 3.4 mEq/L (3.5-5.1); Sodium 133 mEq/L (136-145); Total Protein 6.3 g/dL (6.4-8.9); eGFR For African Americans > 60 (> 60); eGFR For Non-African Americans > 60 (> 60)
[2020-11-01] MEDS ORDERED: *HR* FentaNYL PATCH 50 MCG PATCH TD SCH (08:00)
[2020-11-01] MEDS ORDERED: BuPROPion XL (24 HR) 150 MG TABLET PO SCH (09:00)
[2020-11-01 09:23] LABS: % Iron Saturation 10 % (15-50); Iron 31 mcg/dL (50-170); Transferrin 230 mg/dL (203-362)
[2020-11-01] MEDS: Lactobacillus 1 EACH CAP.SPRINK PO SCH (09:40)
[2020-11-01] MEDS: Chlorhexidine Rinse 15 ML MOUTHWASH MM SCH (09:40)
[2020-11-01 09:41] LABS: Ferritin 116 ng/mL (10-120)
[2020-11-01 09:51] LABS: Folate 12.9 ng/mL (3.0-16.0)
[2020-11-01 10:43] VITALS: BP 106/70
[2020-11-01] MEDS ORDERED: GRANISETRON TP SCH (17:00)
== END 2020-11-01 16:04 | disposition home or self-care (01) ==
LOC: EMEROOARM 12:27 → 3ANU 12:27 → SUATTDRO 15:06 → 3ANU 15:46
PROVIDERS: ADMIT Internal Medicine; ATTEND Internal Medicine